=== PATIENT | female | born 1990 | race Caucasian/White ===

== ENCOUNTER 2018-06-01 20:27 | Emergency (ER) | END 2018-06-01 23:36 | disposition home or self-care (01) ==

== ENCOUNTER 2018-06-15 11:54 | Emergency (ER) | END 2018-06-15 16:15 | disposition home or self-care (01) ==

== ENCOUNTER 2018-12-07 14:08 | Emergency (ER) | payer SELFPAY ==
[~2018-12-07] VITALS: Ht 165.1 cm; Wt 74.0 kg
[~2018-12-07 14:08] MED LIST: ACET1TAB40 PO; AMOX500C2 PO; IBUP-1542 PO; LORA1TAB PO; PANT40TA3 PO
[2018-12-07 14:35] VITALS: BP 144/74; PULSE 98; RESP 18; Ht 165.1 cm; Wt 74.0 kg
== END 2018-12-07 14:25 | disposition left against medical advice (07) ==
LOC: FTE 14:08
DX: Z53.21 Procedure and treatment not carried out due to patient leaving prior to being seen by health care provider (principal)

== ENCOUNTER 2019-03-15 22:16 | Emergency (ER) | payer SELFPAY ==
[~2019-03-15] VITALS: Ht 162.6 cm; Wt 64.7 kg
[2019-03-15 22:21] VITALS: BP 135/67; PULSE 131; RESP 20; Ht 162.6 cm; Wt 64.7 kg
[2019-03-15] MEDS ORDERED: SOD CHLORIDE 0.9% 1,000 ML IV ONE (23:00)
--- NOTE | 2019-03-15 23:47 | ERD ---
ER Documentation Chief Complaint Chief Complaint CLAIMS SHE TOOK TOO MANY PERCOCET, ALEVE AND TYLENOL HPI This is a 28-year-old female with a past medical history of recent breast augmentation and abdominal liposuction on March 11, 2019 who is presenting with feeling generally unwell. The patient reports that since the surgery, the patient has been taking 1 to 2 tablets of Percocet every 4 hours and tablets of Aleve and Tylenol every 4 hours in between the Percocet. The patient reports that she was told to take the Aleve every 4 hours, but when speaking to her physician today, her physician told her that it was only supposed to be twice a day. The patient was very concerned about this information. She reports having had a burning sensation beginning in her face and radiating down into her whole body. She endorses feeling flush and reports having had hives as well. The skin symptoms have since resolved, but the patient still feels generally unwell. She is concerned that she could have overdosed on her pain medication regimen and wants to be evaluated fully. The patient does endorse a moderate sore aching sensation to her back and abdomen with bruising all over, where the liposuction took place. The patient also endorses taking Keflex for the last 4 days without any trouble. The patient denies feeling sick recently. The patient denies fever or chills. The patient has had no headache or vision changes. The patient does not endorse neck or back pain. The patient denies lightheadedness or dizziness. The patient has had no chest pain or trouble breathing. The patient denies nausea or vomiting. The patient denies changes to bowel movements or urination. The patient has had no focal deficits. The patient has had no weakness or numbness or tingling to the face or extremities. ROS All systems reviewed and are negative except as per history of present illness. Medications Home Meds Active Scripts Acetaminophen with Codeine (Acetaminophen-Cod #3 Tablet) 1 Each Tablet, 1 TAB PO Q6H PRN for PAIN, #7 TAB Prov:JIMMIE PARKER MD 06/15/18 Lorazepam* (Lorazepam*) 1 Mg Tablet, 1 MG PO Q8, #10 TAB Prov:JIMMIE PARKER MD 06/15/18 Pantoprazole* (Protonix*) 40 Mg Tablet.dr, 40 MG PO DAILY for 14 Days, #15 TAB Prov:JIMMIE PARKER MD 06/15/18 Acetaminophen with Codeine (Acetaminophen-Cod #3 Tablet) 1 Each Tablet, 1 TAB PO Q6H PRN for PAIN, #7 TAB Prov:JIMMIE PARKER MD 06/01/18 Ibuprofen* (Motrin*) 600 Mg Tab, 600 MG PO Q6, #15 TAB Prov:JIMMIE PARKER MD 06/01/18 Amoxicillin* (Amoxicillin*) 500 Mg Cap, 500 MG PO TID for 10 Days, CAP Prov:JIMMIE PARKER MD 06/01/18 Allergies Allergies: Coded Allergies: No Known Allergy (Unverified , 06/01/18) PMhx/Soc History of Surgery: Yes (breast augmentation, liposuction abd and back surgery 03/11) Anesthesia Reaction: No Hx Neurological Disorder: No Hx Respiratory Disorders: No Hx Cardiac Disorders: No Hx Psychiatric Problems: No Hx Miscellaneous Medical Probl: No Hx Alcohol Use: No Hx Substance Use: No Hx Tobacco Use: No Smoking Status: Former smoker FmHx Family History: No diabetes Physical Exam Vitals Vital Signs Date Temp Pulse Resp B/P (MAP) Pulse Ox O2 O2 Flow FiO2 Time Delivery Rate 03/15/19 98.7 131 20 135/67 99 22:21 (89) Physical Exam Const: No apparent distress, well-developed, well-nourished Head: Normocephalic, Atraumatic Eyes: Normal Conjunctiva. Extraocular movements grossly intact. ENT: Normal External Ears, Nose and Mouth. Neck: Full range of motion. No meningismus. Resp: Clear to auscultation bilaterally, No wheezes, rales or rhonchi Cardio: Regular rhythm. Tachycardia. No murmurs, rubs or gallops Breast: Elastic Yarn Twister Helper present at all times. Breast augmentation observed. Abd: Bruising to the abdomen. Soft, non tender, non distended. Normal bowel s ounds Skin: No petechiae or rashes Back: 3 small surgical site incisions to the mid lumbar back with minimal serosanguineous drainage, no purulence, no fluctuance, no erythema, no induration, no warmth. No midline tenderness. No CVA tenderness Ext: No cyanosis, or edema Neur: Awake and alert, oriented 4. Cranial nerves intact. No facial droop. Normal strength, sensation and coordination. Psych: Anxious Result Diagram: 03/15/19223603/15/192236 Results 24 hrs Laboratory Tests Test 03/15/19 22:37 White Blood Count 6.5 10^3/ul Red Blood Count 3.56 10^6/ul Hemoglobin 11.1 g/dl Hematocrit 32.5 % Mean Corpuscular Volume 91.3 fl Mean Corpuscular Hemoglobin 31.2 pg Mean Corpuscular Hemoglobin Concent 34.2 g/dl Red Cell Distribution Width 11.6 % Platelet Count 328 10^3/UL Mean Platelet Volume 9.7 fl Immature Granulocytes % 0.500 % Neutrophils % 61.7 % Lymphocytes % 28.4 % Monocytes % 7.8 % Eosinophils % 1.4 % Basophils % 0.2 % Nucleated Red Blood Cells % 0.0 /100WBC Immature Granulocytes # 0.030 10^3/ul Neutrophils # 4.0 10^3/ul Lymphocytes # 1.9 10^3/ul Monocytes # 0.5 10^3/ul Eosinophils # 0.1 10^3/ul Basophils # 0.0 10^3/ul Nucleated Red Blood Cells # 0.0 10^3/ul Sodium Level 140 mmol/L Potassium Level 4.1 mmol/L Chloride Level 105 mmol/L Carbon Dioxide Level 26 mmol/L Anion Gap 9 Blood Urea Nitrogen 11 mg/dl Creatinine 0.77 mg/dl Est Glomerular Filtrat Rate mL/min > 60 mL/min Glucose Level 120 mg/dl Calcium Level 9.3 mg/dl Total Bilirubin 0.9 mg/dl Direct Bilirubin 0.00 mg/dl Indirect Bilirubin 0.9 mg/dl Aspartate Amino Transf (AST/SGOT) 44 IU/L Alanine Aminotransferase (ALT/SGPT) 34 IU/L Alkaline Phosphatase 59 IU/L Total Protein 7.8 g/dl Albumin 4.6 g/dl Globulin 3.20 g/dl Albumin/Globulin Ratio 1.43 Salicylates Level < 1.0 mg/dl Acetaminophen Level < 10.0 ug/ml Ethyl Alcohol Level < 10.0 mg/dl Current Medications Medications Dose Sig/Russel Start Time Status Last (Trade) Ordered Route PRN Stop Time Admin Dose Reason Admin Sodium 1,000 ml @ Q1H ONCE 03/15/19 03/15/19 Chloride 1,000 mls/hr IV 23:00 7/6/19 22:55 23:59 Procedures/MDM MDM The patient's presentation warrants further investigation. Previous medical records, if available, were reviewed. LABS The patient's laboratory testing was obtained and reviewed. No emergent treatment was required unless described below. CBC: No E/o systemic infection or thrombocytopenia. Mild normocytic anemia, not emergent. Chemistry: No E/o severe acidosis or alkalosis or renal failure or liver disease or diabetic ketoacidosis Tox: No E/o alcohol abuse. No E/o salicylate or acetaminophen use. TREATMENT/DISPOSITION The patient presents with concerns of overdosing on her medication. The patient salicylate and Tylenol levels are negative. The patient does not have symptoms concerning for an opiate overdose. She is also concerned about an allergic reaction. I do not see any evidence of an allergic reaction at this time. There is no evidence of angioedema. The patient's lungs are clear without wheezing or stridor. The patient does not have any airway involvement. The patient endorsed feeling flushed with a burning sensation, redness and hives, but there is no evidence of this at this time. The patient does appear extremely anxious in the room. This could have been related to anxiety or possible vasovagal event. I do not suspect an em ergent etiology. Once the patient was able to calm down in the room, the patient's heart rate returned to normal. I suspect that the patient's tachycardia was related to significant anxiousness. I do not suspect a cardiopulmonary process. The patient does have significant bruising from her surgery, which is to be expected. I do not see any evidence of an infection. She is afebrile. She does not appear systemically ill. The patient is not septic and does not require a full septic work-up. I do feel that the patient may continue taking her Keflex as prescribed. The patient was treated with normal saline in the emergency department. DISCHARGE Upon reevaluation of the patient, symptoms have improved. No emergent diagnoses were identified. At this time, I feel that the patient stable for discharge. The patient was instructed to follow-up with a primary care physician in 1-3 days. The patient will be given strict precautions with which to return to the emergency department. Prescriptions: None. The patient was provided verbal instructions regarding her current prescriptions. She understands the importance of taking her prescriptions as prescribed. The patient's blood pressure was elevated at greater than 120/80 while in the emergency department. The patient was otherwise stable with no evidence of hypertensive urgency or emergency. The patient does not require admission for blood pressure control. I have discussed with the patient the risks of hypertension. I have instructed the patient to return to the ER for any new or worsening symptoms including chest pain, shortness of breath, headache, blurred vision, confusion, nausea, vomiting or LOC. I have advised the patient to follow up with the primary care physician for outpatient monitoring and treatment for hypertension in 1-3 days. Disclaimer: Inadvertent spelling and grammatical errors are likely due to EHR/dictation software use and do not reflect on the overall quality of patient care. Note that the electronic time recorded on this note does not necessarily reflect the actual time of the patient encounter. Departure Diagnosis: Primary Impression: Accidental overdose Encounter type: initial encounter Qualified Codes: T50.901A - Poisoning by unspecified drugs, medicaments and biological substances, accidental (unintentional), initial encounter Additional Impressions: Tachycardia Anxiousness Normocytic anemia Condition: Stable Patient Instructions: Overdose, Accidental (Adult), Anxiety Reaction Additional Instructions: Thank you for for coming to [facility] for your care today. Please ask your nurse or provider if you have questions about your care today and do not leave until all your questions have been answered. Please use any medications given as directed and follow-up with your doctor (or the doctor you were referred to) in the next 1-3 days. If you do not have a primary care doctor you may follow up at the [facility] (listed below). You may also use motrin and tylenol as needed for fever and/or pain unless instructed otherwise by your provider or nurse. Indications for more urgent follow-up have been discussed, but you may return to the Emergency Department at ANY time for any worrisome or worsening symptoms. If you have abdominal pain, please know that no test or exam you received is perfect and you should follow up within 8 hours for continued pain. If you had any imaging studies today, such as an X-Ray or CT Scan, these studies will be reviewed later by a radiologist. You will be called if there are important findings that were not identified today, so make sure the contact information you provided at registration is correct. If you received any narcotic pain control medicine today, such as Vicodin, Morphine or Dilaudid, your coordination and judgment may be affected for a number of hours. Please do not drive or operate heavy machinery, and you may want someone to assist you at home. If you were given a prescription for narcotic medication, be aware that it is very addictive- use sparingly and only if necessary. PLEASE SEEK FURTHER EVALUATION AND MANAGEMENT AT YOUR DOCTORS OFFICE WITHIN THE NEXT 1-3 DAYS. IT IS YOUR RESPONSIBILITY TO MAKE AN APPOINTMENT FOR FOLOW-UP CARE. IF YOU HAVE A PRIMARY DOCTOR, PLEASE CALL THEIR OFFICE TO SCHEDULE AN APPOINTMENT FOR FOLLOW UP. IF YOU DO NOT HAVE A PRIMARY DOCTOR YOU CAN CALL OUR PHYSICIAN REFERRAL HOTLINE AT IF YOU CAN NOT AFFORD TO SEE A PHYSICIAN YOU CAN CHOSE FROM THE FOLLOWING [facility] CLINICS: [facility] [address]. [facility] [address] [facility] [facility] [address] [facility] [facility] [address] [facility]. [facility] [address] [facility]. [facility]. [address] LAUREN ROONEY MD Mar 15, 2019 23:45
[2019-03-16] MEDS ORDERED: oxyCODONE 5 MG TAB PO ONE (00:30)
== END 2019-03-16 01:59 | disposition home or self-care (01) ==
LOC: E/R 22:16
DX: T39.311A Poisoning by propionic acid derivatives, accidental (unintentional), initial encounter (principal); R00.0 Tachycardia, unspecified; F41.9 Anxiety disorder, unspecified; D64.9 Anemia, unspecified
CPT/HCPCS: 36415; 80053; 80307; 85025; 96360; 99284; J7030

== ENCOUNTER 2019-05-09 11:12 | Emergency (ER) | payer SELFPAY ==
[~2019-05-09] VITALS: Ht 162.6 cm; Wt 64.3 kg
[2019-05-09 11:14] VITALS: BP 120/69; PULSE 103; RESP 18; Ht 162.6 cm; Wt 64.3 kg
== END 2019-05-09 12:00 | disposition left against medical advice (07) ==
LOC: E/R 11:12
DX: Z53.21 Procedure and treatment not carried out due to patient leaving prior to being seen by health care provider (principal)
CPT/HCPCS: 93005